=== PATIENT | male | born 1950 | race Caucasian/White ===

== ENCOUNTER → 2018-01-27 | Outpatient (CLI) | payer OTHER, MEDICARE | END | disposition home or self-care (01) | LOC: US 08:18 | DX: I71.4 Abdominal aortic aneurysm, without rupture (principal); I70.0 Atherosclerosis of aorta | CPT/HCPCS: 76770 ==

== ENCOUNTER → 2018-05-05 | Outpatient (CLI) | payer OTHER ==
[2018-05-05 10:21] LABS: ALBUMIN 3.8 g/dL (3.4-5.0); ALBUMIN/GLOBULIN RATIO 1.1 (1.0-1.7); ALK PHOS 89 U/L (46-116); ALT (SGPT) 32 U/L (16-63); ANION GAP 8 (6-14); AST (SGOT) 21 U/L (15-37); BLOOD UREA NITROGEN 7 mg/dL (8-26); BUN/CREATININE RATIO 12 (6-20); CALCIUM 8.6 mg/dL (8.5-10.1); CARBON DIOXIDE 26 mmol/L (21-32); CHLORIDE 100 mmol/L (98-107); CHOLESTEROL 179 mg/dL (0-200); CREATININE 0.6 mg/dL (0.7-1.3); GFR 134.8; GLUCOSE 92 mg/dL (70-99); HDLC 50 mg/dL (40-60); LDLC 84 mg/dL (0-100); NON-HDL CHOLESTEROL 129 mg/dL (0-129); POTASSIUM 3.9 mmol/L (3.5-5.1); SODIUM 134 mmol/L (136-145); TOTAL BILIRUBIN 0.3 mg/dL (0.2-1.0); TOTAL PROTEIN 7.3 g/dL (6.4-8.2); TRIGLYCERIDES 226 mg/dL (0-150); VLDLC 45 mg/dL (0-40)
[2018-05-05 10:22] LABS: CHOLESTEROL/HDL RATIO 3.6
== END | disposition home or self-care (01) ==
LOC: US 08:49
DX: E78.4 Other hyperlipidemia (principal); I71.4 Abdominal aortic aneurysm, without rupture; I10 Essential (primary) hypertension; F17.200 Nicotine dependence, unspecified, uncomplicated
CPT/HCPCS: 36415; 80053; 80061; 93880

== ENCOUNTER → 2018-10-27 | Outpatient (CLI) | payer OTHER ==
[~2018-10-27] MED LIST: CONTRAST GIVEN. MC PRN; IOHEXOL 300 MG/ML 100ML VIAL. IV ONE
--- NOTE | 2018-10-27 08:38 | RAD ---
Examination: CT ANGIOGRAPHY ABDOMEN History: HX OF ABD ANEURYSM FOUND ON MRI/ US STUDIES, 1YEAR FOLLOW UP
OMNI 300 90ML, PRIOR MRI AND US REPORTS ATTACHED Comparison/Correlation: MRI lumbar spine 08/24/2016, abdominal ultrasound exam 12/31/2017 Findings: Axial images of the abdomen were obtained following IV contrast according to arteriography protocol. 3-D volume rendered surface shaded display images of the abdominal aorta were provided. Linear scarring or atelectasis at the lung bases noted anteriorly. The liver, spleen, pancreas, adrenal glands, and kidneys are unremarkable on arterial phase images provided. Left lower pole renal cyst is small in size. There are 2 right and 2 left renal arteries. The lower of the 2 left renal arteries has approximately 50% to 75% stenosis at its origin and very proximal extent. Celiac and superior mesenteric arteries are patent. No stenosis at the origins. Inferior mesenteric artery origin is also patent although calcification limits assessment slightly. There is an infrarenal abdominal aortic fusiform aneurysm with length of 7.3 cm. Diameter of up to 3.9 cm is identified. The common iliac arteries are widely patent. No enlarged abdominal lymph nodes. No ascites. Appendix is normal. Severe degenerative disc space narrowing from L2 to L5 is present with vacuum phenomenon. Effacement of the thecal sac at the L3 inferior endplate level is evident with spinal canal narrowing. Disc osteophyte complex at L5-S1 is noted with effacement of the thecal sac. Impression: Infrarenal abdominal aortic fusiform aneurysm with diameter of up to 3.9 cm. This represents interval increase as compared with an abdominal ultrasound examination of 01/27/2018. Alternatively, this may relate to differences in measurement technique. Continued follow-up to assess stability recommended. 50% to 75% stenosis of the lower left renal artery is noted. Electronically signed by: Shaq Arcos MD (10/27/2018 8:34 AM) [id number]
== END | disposition home or self-care (01) ==
LOC: CT 06:52
PROVIDERS: ATTEND Internal Medicine Cardiovascular Disease
DX: I71.4 Abdominal aortic aneurysm, without rupture (principal); N28.1 Cyst of kidney, acquired; M25.78 Osteophyte, vertebrae
CPT/HCPCS: 74175; Q9967

== ENCOUNTER → 2019-10-05 | Outpatient (CLI) | payer OTHER ==
--- NOTE | 2019-10-05 09:05 | CARD ---
MR#: [id number] Date of Study: 10/05/2019 Ordering Physician: GUADALUPE CONTRERAS, Referring Physician: GUADALUPE CONTRERAS, Tech: Jenn Barker [facility] APPROVED REPORT EXAM: Two-dimensional and M-mode echocardiogram with Doppler and color Doppler. Other Information Quality : Fair Technically limited study due to smoking/lung interference INDICATION Hypertension/HCVD RISK FACTORS Smoking 2D DIMENSIONS Left Atrium(2D)3.3 (1.6-4.0cm)IVSd0.9 (0.7-1.1cm) Aortic Root(2D)2.9 (2.0-3.7cm)LVDd5.4 (3.9-5.9cm) LVOT Diameter2.0 (1.8-2.4cm)PWd0.9 (0.7-1.1cm) LVDs2.8 (2.5-4.0cm)FS (%) 30.0 % SV113.4 mlLVEF(%)60.0 (>50%) Aortic Valve AoV Peak Camilo.171.8cm/sAoV VTI28.4cm AO Peak GR.11.8mmHgLVOT Peak Camilo.174.1cm/s AO Mean GR.6mmHgAVA (VMAX)3.22cm2 LUCINAO (VTI)3.97oi6IK P 1/2 Wlsi544xy Mitral Valve MV E Lfpguswt72.9cm/sMV DECEL URBX756en MV A Gbegidfg751.4cm/sE/A Ratio0.8 Tricuspid Valve TR P. Zlqdlret497te/sRAP AMCVBBUO8owRw TR Peak Gr.37ugUmUNNQ69veJh Pulmonary Vein S1 Gmyhtwoi44.0cm/sD2 Tpbtpwac72.7cm/s LEFT VENTRICLE The left ventricle is normal size. There is normal left ventricular wall thickness. The left ventricu lar systolic function is normal. The Ejection Fraction is 55-60%. There is normal LV segmental wall m otion. Transmitral Doppler flow pattern is Grade I-abnormal relaxation pattern. RIGHT VENTRICLE The right ventricle is normal size. The right ventricular systolic function is normal. ATRIA The left atrium size is normal. The right atrium size is normal. The interatrial septum is intact wit h no evidence for an atrial septal defect or patent foramen ovale as noted on 2-D or Doppler imaging. AORTIC VALVE The aortic valve is calcified but opens well. Doppler and Color Flow revealed mild to moderate aortic regurgitation. There is no significant aortic valvular stenosis. MITRAL VALVE The mitral valve is thickened but opens well. There is no evidence of mitral valve prolapse. There is no mitral valve stenosis. Doppler and Color-flow revealed trace mitral regurgitation. TRICUSPID VALVE The tricuspid valve is normal in structure and function. Doppler and Color Flow revealed mild tricusp id regurgitation. There is mild pulmonary hypertension. The PA pressure was estimated at 30 mmHg. The re is no tricuspid valve stenosis. PULMONIC VALVE The pulmonic valve is not well visualized. Doppler and Color Flow revealed no pulmonic valvular regur gitation. There is no pulmonic valvular stenosis. GREAT VESSELS The aortic root is normal in size. The ascending aorta is normal in size. The IVC is normal in size a nd collapses >50% with inspiration but there appears to be a clot visualized. The clot appears in the proximal portion of the IVC and seems to extend further into the distal portion. PERICARDIAL EFFUSION There is no evidence of significant pericardial effusion. Critical Notification Critical Value: No <Conclusion> The left ventricular systolic function is normal. The Ejection Fraction is 55-60%. There is normal LV segmental wall motion. Transmitral Doppler flow pattern is Grade I-abnormal relaxation pattern. Mild to moderate aortic regurgitation. Trace mitral regurgitation. Mild tricuspid regurgitation. The PA pressure was estimated at 30 mmHg. *The IVC is normal in size but thrombus was noted in it*. Consider anticoagulation. There is no evidence of significant pericardial effusion. Signed by : Jorge Alberto Meza, Electronically Approved : 10/05/2019 09:04:37
--- NOTE | 2019-10-05 13:23 | RAD ---
MR#: [id number] Date of Study: 10/05/2019 Ordering Physician: GUADALUPE CONTRERAS, Referring Physician: GUADALUPE CONTRERAS, Tech: Linda Shea, MIKALA, RVT, RTR APPROVED REPORT Patient Location: OUT-PATIENT Indications AAA Duplex Results A/PTransverseLongitudinal Proximal Aorta 3.2cm3.4cm Mid Aorta 3.8cm3.6cm Distal Aorta 3.8cm4.4cm Rt. Common Iliac Artery1.3cm1.5cm Lt. Common Iliac Artery 1.3cm1.4cm Doppler VelocityWaveform Proximal Aorta 75.3 cm/secBiphasic Aorta Mid. 90.6 cm/secBiphasic Distal Aorta 34.4 cm/secBiphasic Rt. Common Iliac Cugktj960.3 cm/secTriphasic Lt. Common Iliac Artery 106.3 cm/secTriphasic Findings Grayscale images of the abdominal aorta reveals moderate diffuse ectasia. Measurements are as noted. There is a moderate size distal abdominal aortic aneurysm measuring approximately 4.4 cm in greatest diameter. The bilateral iliac vessels are grossly unremarkable. Normal velocities noted. Critical Notification Critical Value: No <Conclusion> 1. Moderate distal abdominal aortic aneurysm measuring 4.47 cm. Signed by : Guadalupe Contreras, Electronically Approved : 10/05/2019 13:23:08
== END ==
LOC: ECHO 07:57
PROVIDERS: ATTEND Internal Medicine Cardiovascular Disease
DX: I71.4 Abdominal aortic aneurysm, without rupture (principal); I08.2 Rheumatic disorders of both aortic and tricuspid valves; I82.220 Acute embolism and thrombosis of inferior vena cava; I10 Essential (primary) hypertension; I27.20 Pulmonary hypertension, unspecified
CPT/HCPCS: 76770; 93306

== ENCOUNTER → 2019-10-19 | Outpatient (CLI) | payer OTHER ==
[~2019-10-19] MED LIST changes: -CONTRAST GIVEN. MC PRN
--- NOTE | 2019-10-19 13:17 | RAD ---
CT study abdomen with contrast Clinical indications: Abdominal aortic aneurysm COMPARISON: October 27, 2018. TECHNIQUE: After IV infusion of 75 cc of Omnipaque 300, helical CT scanning of the abdomen from the hemidiaphragms down through the iliac crests was performed. PQRS compliance Statement One or more of the following individualized dose reduction techniques were utilized for this study: 1. Automated exposure control 2. Adjustment of the mA and/or kV according to patient size 3. Use of iterative reconstruction technique FINDINGS: The liver and spleen and pancreas and gallbladder are normal. No extrahepatic biliary ductal dilatation is seen. No adrenal mass is evident. Lower pole left renal cyst is seen which is unchanged in size. There is an infrarenal abdominal aortic aneurysm which measures 4.1 cm in greatest caliber. This measured 3.8 cm previously. Calcified and soft plaque formation is seen within the abdominal aorta. No significant stenosis of the abdominal aorta is seen. No enlarged abdominal lymphadenopathy is evident. There is a subcutaneous cyst of the anterior abdominal wall on the right side which measures 14 mm. It measured 12 mm previously. No free air or free fluid or mesenteric edema or obstructive bowel pattern is evident. No lung base consolidation is evident. Degenerative lumbar spondylosis with degenerative disc space narrowing and subchondral sclerosis and cyst formation is seen from L2-3 down through L5-S1. This results in multilevel spinal canal stenosis. Delayed images were performed. The portal vein enhances normally. The inferior vena cava enhances normally and no evidence of thrombosis. IMPRESSION: Infrarenal abdominal aortic aneurysm measuring 4.1 cm in greatest caliber. It has increased slightly in caliber from the previous study in September 2018 when it measured 3.8 cm. IVC is patent. No other acute abnormality is evident. Electronically signed by: Bebeto Gonzalez MD (10/19/2019 1:14 PM) [facility]
== END | disposition home or self-care (01) ==
LOC: CT 08:57
PROVIDERS: ATTEND Internal Medicine Cardiovascular Disease
DX: I71.4 Abdominal aortic aneurysm, without rupture (principal); I82.220 Acute embolism and thrombosis of inferior vena cava; N28.1 Cyst of kidney, acquired; I70.0 Atherosclerosis of aorta; M47.816 Spondylosis without myelopathy or radiculopathy, lumbar region; M51.36 Other intervertebral disc degeneration, lumbar region; M48.061 Spinal stenosis, lumbar region without neurogenic claudication; I10 Essential (primary) hypertension; F17.200 Nicotine dependence, unspecified, uncomplicated; Z79.01 Long term (current) use of anticoagulants
CPT/HCPCS: 74160; Q9967

== ENCOUNTER → 2021-03-09 | Outpatient (CLI) | payer MEDICARE, OTHER ==
[~2021-03-09] MED LIST changes: +CONTRAST GIVEN. MC PRN; -IOHEXOL 300 MG/ML 100ML VIAL. IV ONE; +IOHEXOL 350 MG/ML 100 ML VIAL. IV ONE
[2021-03-09 08:00] LABS: CREATININE 0.8 mg/dL (0.7-1.3); GFR 95.8
--- NOTE | 2021-03-09 09:19 | RAD ---
CTA ABDOMEN AND PELVIS WITHOUT IV CONTRAST History: AAA Comparison: 10/19/2019, 10/27/2018. Technique: CT angiogram of the abdomen and pelvis with intravenous contrast. 3-D surface renderings a nd coronal/sagittal MIPS of the vasculature were provided. Findings: Aorta/vasculature: Measures 3.4 x 3.4 cm at the diaphragmatic hiatus, 3.2 x 3.1 cm at the left renal artery and demonstrates fusiform dilation infrarenal measuring up to 4.3 x 4.1 cm superior to the inf erior mesenteric artery, previously 4.1 cm in greatest diameter. Tapers to 2.7 x 2.6 cm at the level of the bifurcation. Mural plaque and calcifications most prominent at the lower thoracic aorta and at the level of the inferior mesenteric artery. The origins of the celiac axis, SMA, bilateral duplicat ed renal veins, inferior mesenteric artery and iliac arteries are patent. Lower chest: Mild emphysematous changes. Calcified parenchymal granulomas. Lingular atelectasis. General abdomen: No ascites. No free air. Liver : Normal in size and attenuation. No masses seen. Gallbladder/Biliary Tree: Normal gallbladder. No intrahepatic or extrahepatic biliary ductal dilatati on. Pancreas: Normal. Spleen: Punctate calcifications consistent with old granulomatous disease. Adrenal glands: Normal. Kidneys: No hydronephrosis or hydroureter. No renal masses identified. Gastrointestinal: Unremarkable. Lymph nodes: No lymphadenopathy. Pelvic Organs: Unremarkable prostate. No pelvic masses. The bladder is unremarkable. Soft tissues: Right lower quadrant abdominal wall subcutaneous 1.5 x 1.0 cm ovoid circumscribed mass. Bones: Degenerative changes of the spine. Crescentic sclerosis at the femoral heads likely represents sequela of avascular necrosis. Impression: 1. Mild progressive enlargement of infrarenal aortic aneurysm measuring 4.3 x 4.1 cm (previously up to 4.1 cm greatest caliber). 2. Subcutaneous mass right lower quadrant abdominal wall measuring 1.5 x 1.0 cm likely represents be nign etiology such as inclusion cyst, however recommend correlation with physical exam. 3. Bilateral femoral head avascular necrosis. ------ Exposure: One or more of the following individualized dose reduction techniques were utilized for thi s examination: 1. Automated exposure control 2. Adjustment of the mA and/or kV according to patient size 3. Use of iterative reconstruction technique. Electronically signed by: Vazquez Rubio MD (03/09/2021 9:16 AM) [facility]
--- NOTE | 2021-03-09 15:46 | RAD ---
MR#: [id number] Date of Study: 03/09/2021 Ordering Physician: GUADALUPE CONTRERAS, Referring Physician: GUADALUPE CONTRERAS, Tech: Fady Cunningham MBA, RDMS, RVT, RDCS, RTR APPROVED REPORT Patient Location: OUT-PATIENT Laterality:Bilateral Indications PAD Doppler Spectral Velocity Analysis Right Left pCCA 97/23 cm/spCCA 119/35 cm/s mCCA 112/34 cm/smCCA 111/35 cm/s dCCA 88/31 cm/sdCCA 93/32 cm/s Bulb 69/23 cm/sBulb 104/41 cm/s ECA 69/ cm/sECA 84/ cm/s pICA 91/38 cm/spICA 96/39 cm/s David 87/37 cm/smICA 102/33 cm/s dICA 87/41 cm/sdICA 99/35 cm/s Vert. 63/ cm/sVert. 70/ cm/s Subcl. 125/ cm/sSubcl. 133/ cm/s ICA/CCA 0.81ICA/CCA 0.86 Findings Bilateral carotid vessels demonstrate mild diffuse intimal hyperplasia and minimal diffuse atheroscle rotic plaque. Velocities overall consistent with 0 to less than 50% stenosis. Normal ICA to CCA rat ios bilaterally. Antegrade vertebral velocities bilaterally. Normal bilateral subclavian velocities Critical Notification Critical Value: No <Conclusion> 1. No significant bilateral extracranial carotid occlusive disease. Signed by : Guadalupe Contreras, Electronically Approved : 03/09/2021 15:46:22
== END ==
LOC: CT 08:28
PROVIDERS: ATTEND Internal Medicine Cardiovascular Disease
DX: I71.4 Abdominal aortic aneurysm, without rupture (principal); I65.23 Occlusion and stenosis of bilateral carotid arteries; R19.00 Intra-abdominal and pelvic swelling, mass and lump, unspecified site
CPT/HCPCS: 36415; 74174; 82565; 84520; 93880; Q9967

== ENCOUNTER → 2021-10-08 | Outpatient (CLI) | payer OTHER ==
[2021-10-08 08:56] LABS: ALBUMIN 3.4 g/dL (3.4-5.0); CALCIUM 8.3 mg/dL (8.5-10.1); CREATININE 0.7 mg/dL (0.7-1.3); GFR 111.8; POTASSIUM 4.2 mmol/L (3.5-5.1); TOTAL BILIRUBIN 0.3 mg/dL (0.2-1.0); TOTAL PROTEIN 6.7 g/dL (6.4-8.2)
[2021-10-08 08:58] LABS: CHOLESTEROL/HDL RATIO 2.3
== END ==
LOC: LAB 07:55
PROVIDERS: ATTEND Internal Medicine Cardiovascular Disease
DX: E78.5 Hyperlipidemia, unspecified (principal)
CPT/HCPCS: 36415; 80053; 80061

== ENCOUNTER → 2022-03-22 | Outpatient (CLI) | payer OTHER ==
--- NOTE | 2022-03-22 08:50 | RAD ---
MR#: [id number] Date of Study: 03/22/2022 Ordering Physician: GUADALUPE CONTRERAS, Referring Physician: GUADALUPE CONTRERAS, Tech: Fady Cunningham MBA, RDMS, RVT, RDCS, RTR APPROVED REPORT Patient Location: OUT-PATIENT Indications AAA Duplex Results A/PTransverseLongitudinal Proximal Aorta 3.8cm3.3cm Mid Aorta 3.7cm3.2cm Distal Aorta 4.2cm4.2cm Rt. Common Iliac Artery1.1cm Lt. Common Iliac Artery 1.4cm Doppler VelocityWaveform Proximal Aorta 63.0 cm/sec Aorta Mid. 42.0 cm/sec Distal Aorta 38.0 cm/sec Rt. Common Iliac Dgkpla62.0 cm/sec Lt. Common Iliac Artery 102.0 cm/sec Findings FINDINGS Grayscale images of abdominal aorta showed mild diffuse atherosclerosis and abdominal aortic aneurysm involving the distal descending aorta, measuring 4.2 cm in the largest diameter. Spectral waveform and color duplex analysis showed normal velocities without any evidence of stenosis. Bilateral commo n iliacs were grossly unremarkable. CONCLUSIONS Abdominal aortic aneurysm involving the distal descending aorta, measuring 4.2 cm in the largest diam eter, appears to be stable compared to prior scan. Critical Notification Critical Value: No Signed by : Jorge Alberto Meza, Electronically Approved : 03/22/2022 08:50:08
--- NOTE | 2022-03-22 17:34 | CARD ---
MR#: [id number] Date of Study: 03/22/2022 Ordering Physician: GUADALUPE CONTRERAS, Referring Physician: GUADALUPE CONTRERAS, Tech: DERECK LOPEZ [facility] APPROVED REPORT EXAM: Two-dimensional and M-mode echocardiogram with Doppler and color Doppler. Other Information Quality : AverageHR: 87bpm Rhythm : NSRTechnically limited study due to body habitus. INDICATION Hypertension/HCVD RISK FACTORS Hypertension 2D DIMENSIONS RVDd3.4 (2.9-3.5cm)Left Atrium(2D)2.8 (1.6-4.0cm) IVSd0.7 (0.7-1.1cm)Aortic Root(2D)2.6 (2.0-3.7cm) LVDd4.4 (3.9-5.9cm)LVOT Diameter2.1 (1.8-2.4cm) PWd0.9 (0.7-1.1cm)LVDs2.8 (2.5-4.0cm) FS (%) 36.3 %SV57.1 ml Aortic Valve AoV Peak Camilo.185.3cm/sAoV VTI35.5cm AO Peak GR.13.7mmHgLVOT Peak Camilo.133.3cm/s AO Mean GR.8mmHgAVA (VMAX)2.59cm2 AI P 1/2 Vybb192qw Mitral Valve MV E Scwnfzhc13.4cm/sMV DECEL ANGT917xq MV A Jmnyxkep46.3cm/sE/A Ratio0.6 Pulmonary Valve PV Peak Sysnbtsz10.7cm/s Tricuspid Valve TR P. Wyslxnon249cw/sRAP BZDXNEDF5vxGw TR Peak Gr.8ieMfVUSN22lwEq Pulmonary Vein S1 Voijmrog75.7cm/sD2 Efnwjimf31.7cm/s PVa przlhtoq162dirq LEFT VENTRICLE The left ventricle is normal size. There is borderline to mild concentric left ventricular hypertroph y. Left ventricular systolic function is mildly hyperdynamic. The left ventricular ejection fraction is 60-65% No regional wall motion abnormalities noted. Transmitral Doppler flow pattern is abnormal. No left ventricle thrombus noted on this study. There is no ventricular septal defect visualized. The re is no left ventricular aneurysm. There is no mass noted in the left ventricle. RIGHT VENTRICLE The right ventricle is normal size. There is normal right ventricular wall thickness. The right ventr icular systolic function is normal. ATRIA The left atrium size is normal. The right atrium size is normal. The interatrial septum is intact wit h no evidence for an atrial septal defect or patent foramen ovale as noted on 2-D or Doppler imaging. AORTIC VALVE The aortic valve is mildly to moderately sclerotic. Doppler and Color Flow revealed trace to mild aor tic regurgitation. There is no aortic valvular stenosis. There is no aortic valvular vegetation. MITRAL VALVE The mitral valve is normal in structure and function. There is no evidence of mitral valve prolapse. There is no mitral valve stenosis. Doppler and Color-flow revealed trace mitral regurgitation. TRICUSPID VALVE The tricuspid valve is normal in structure and function. Doppler and Color Flow revealed trace tricus pid regurgitation. The PA pressure was estimated at 14 mmHg. There is no tricuspid valve prolapse or vegetation. There is no tricuspid valve stenosis. PULMONIC VALVE The pulmonary valve is normal in structure and function. There is no pulmonic valvular regurgitation. There is no pulmonic valvular stenosis. GREAT VESSELS The aortic root is normal in size. The ascending aorta is not well seen. The pulmonary artery is norm al. The IVC is normal in size and collapses >50% with inspiration. PERICARDIAL EFFUSION There is no pleural effusion. The pericardium appears normal. Critical Notification Critical Value: No <Conclusion> The left ventricle is normal size. Left ventricular systolic function is mildly hyperdynamic. The left ventricular ejection fraction is 60-65% There is borderline to mild concentric left ventricular hypertrophy. Doppler and Color Flow revealed trace to mild aortic regurgitation. There is no aortic valvular stenosis. Doppler and Color-flow revealed trace mitral regurgitation. Doppler and Color Flow revealed trace tricuspid regurgitation. The PA pressure was estimated at 14 mmHg. Signed by : Yunier Moy MD Electronically Approved : 03/22/2022 17:33:52
== END ==
LOC: US 07:44
PROVIDERS: ATTEND Internal Medicine Cardiovascular Disease
DX: I35.1 Nonrheumatic aortic (valve) insufficiency (principal); I51.7 Cardiomegaly; I10 Essential (primary) hypertension; I71.4 Abdominal aortic aneurysm, without rupture
CPT/HCPCS: 76770; 93306; C8929